=== PATIENT | female | born 1970 | race Caucasian/White ===

== ENCOUNTER 2016-06-06 19:40 | Emergency (ER) | payer OTHER ==
--- NOTE | ~2016-06-06 | CR151 ---
[facility] A Service of [facility] & [facility] RADIOLOGY TEXT RESULTS PATIENT: AMY SAMANO LOCATION: [place] : 72 UNIT #: [id number] AGE: [address]: JUDSON SHELLEY APRN SEX: F ORDER DR: [id number] [facility] [address] [place], [place] [address] [id number] E MR#: [id number] Acc #: [id number] NAME: AMY SAMANO : 1970 SEX: F STUDY DATE/TIME: 06/06/2016 20:05 UNIT: [facility] ROOM: STUDY DESCRIPTION: CR Hip Min 2 Views Rt Attending Physician: Judson Shelley Aprn Ordering Physician: Judson Shelley Aprn Primary Care Physician: No Primary Care Physician MEDICAL IMAGING REPORT This report is preliminary unless electronic signature is present EXAM Right hip 2 views HISTORY Right hip pain after fall today. FINDINGS AP and oblique examination of the hip shows adequate mineralization of the bones and a normal anatomic relationship of the femoral head with the acetabulum. There are no hypertrophic changes, fractures, dislocation, or joint capsular distension. No radiopaque foreign body is present about the soft tissues of the hip. IMPRESSION Normal hip. Dictated by... Dharmesh Pritchard M.D. THIS IS AN ELECTRONICALLY VERIFIED REPORT Dharmesh Pritchard M.D. at 06/07/2016 5:17 PM DFL/jasmina TD: 06/07/2016 12:20 JOB #: [id number] MEDICAL IMAGING REPORT Page 1 of 1 COPY
--- NOTE | ~2016-06-06 | CT71 ---
[facility] A Service of [facility] & [facility] RADIOLOGY TEXT RESULTS PATIENT: AMY SAMANO LOCATION: [facility] : 72 UNIT #: [id number] AGE: [address]: JUDSON SHELLEY APRN SEX: F ORDER DR: [id number] [facility] [address] [place], [place] [address] [id number] E MR#: [id number] Acc #: [id number] NAME: AMY SAMANO : 1970 SEX: F STUDY DATE/TIME: 06/06/2016 21:07 UNIT: [facility] ROOM: STUDY DESCRIPTION: CT Head Wo Contrast Attending Physician: Judson Shelley Aprn Ordering Physician: Judson Shelley Aprn Primary Care Physician: No Primary Care Physician MEDICAL IMAGING REPORT This report is preliminary unless electronic signature is present EXAM Noncontrast head CT. HISTORY Fell down concrete steps today, hit front of forehead, headaches TECHNIQUE Axial noncontrast images were obtained from the skull base to the vertex. This CT exam was performed with one or more of the following radiation dose reduction techniques: automatic exposure control, adjustment of mA and/or kV according to patient size, and iterative reconstruction. FINDINGS Ventricular size and configuration are normal. There is no evidence of acute infarct or hemorrhage. There are no extraaxial fluid collections. No mass lesion or mass effect is seen. There are no skull fractures. IMPRESSION Normal noncontrast head CT. Dictated by... Jesus Jang M.D. THIS IS AN ELECTRONICALLY VERIFIED REPORT Jesus Jang M.D. at 06/07/2016 10:52 PM ROSS/jasmina TD: 06/07/2016 12:21 JOB #: [id number] MEDICAL IMAGING REPORT Page 1 of 1 COPY
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
--- NOTE | ~2016-06-06 | CR58 ---
[facility] A Service of [facility] & [facility] RADIOLOGY TEXT RESULTS PATIENT: AMY SAMANO LOCATION: [facility] : 72 UNIT #: [id number] AGE: [address]: JUDSON SHELLEY APRN SEX: F ORDER DR: [id number] [facility] [address] [place], [place] [address] [id number] E MR#: [id number] Acc #: [id number] NAME: AMY SAMANO : 1970 SEX: F STUDY DATE/TIME: 06/06/2016 19:47 UNIT: [facility] ROOM: STUDY DESCRIPTION: CR Cervical Spine 2 or 3 Views Attending Physician: Judson Shelley Aprn Ordering Physician: Judson Shelley Aprn Primary Care Physician: Primary Care Physician No MEDICAL IMAGING REPORT This report is preliminary unless electronic signature is present EXAM C-spine 3 views HISTORY 46-year-old female, fell down concrete steps complains of neck pain. FINDINGS AP, lateral, open mouth and odontoid views submitted. Examination demonstrates no fracture. There is loss of the normal cervical lordosis. There is C5-6 and C6-7 degenerative disc changes. The craniocervical cervical thoracic junction is unremarkable. Prevertebral soft tissues appear normal. Minimal degenerative ossification over the dorsal aspect of C7. IMPRESSION 1. No definite acute cervical spine abnormality. 2. C5-6 and C6-7 degenerative disc disease. Dictated by... Jesus Jang M.D. THIS IS AN ELECTRONICALLY VERIFIED REPORT Jesus Jang M.D. at 06/07/2016 10:52 PM ROSS/fallon TD: 06/07/2016 12:38 JOB #: [id number] MEDICAL IMAGING REPORT Page 1 of 1 COPY
== END 2016-06-06 22:29 | disposition home or self-care (01) ==
LOC: CFTX 19:40
DX: S20.212A Contusion of left front wall of thorax, initial encounter (principal); S70.01XA Contusion of right hip, initial encounter; J45.909 Unspecified asthma, uncomplicated; F17.210 Nicotine dependence, cigarettes, uncomplicated; Z87.442 Personal history of urinary calculi; Z88.6 Allergy status to analgesic agent; Z88.8 Allergy status to other drugs, medicaments and biological substances; W10.9XXA Fall (on) (from) unspecified stairs and steps, initial encounter; Y92.009 Unspecified place in unspecified non-institutional (private) residence as the place of occurrence of the external cause
CPT/HCPCS: 70450; 71101; 72040; 73502; 99284